=== PATIENT | male | born 1980 | race Asian ===

== ENCOUNTER 2016-10-13 22:19 | Emergency (ER) | payer SELFPAY ==
[2016-10-13 23:14] VITALS: BP 154/61
== END 2016-10-13 23:14 | disposition home or self-care (01) ==
LOC: ED 22:19
DX: S61.052A Open bite of left thumb without damage to nail, initial encounter (principal); W55.81XA Bitten by other mammals, initial encounter; Y93.89 Activity, other specified; Y99.8 Other external cause status; Y92.89 Other specified places as the place of occurrence of the external cause
CPT/HCPCS: 90715